=== PATIENT | male | born 1995 | race Caucasian/White ===

== ENCOUNTER 2017-06-29 13:42 | Emergency (ER) | payer BC ==
[~2017-06-29] VITALS: Ht 175.3 cm; Wt 75.7 kg
[2017-06-29 14:56] LABS: HEMATOCRIT 45.2 % (38.0-50.0); HEMOGLOBIN 16.2 G/DL (12.5-16.6); MCH 31.7 PG (29.0-34.0); MCHC 35.8 G/DL (30.0-36.0); MCV 88.5 FL (86-99); PLATELET COUNT 231 K/uL (156-360); RBC DIS.WIDTH-CV 11.8 % (11.8-14.6); RBC DIS.WIDTH-SD 37.9 % (39-53); RED BLOOD COUNT 5.11 M/uL (4.00-5.50); WHITE BLOOD COUNT 9.5 K/uL (4.1-10.2)
[2017-06-29 15:09] LABS: CHLORIDE 104 mEq/L (99-109); POTASSIUM 4.1 mEq/L (3.7-5.4); SODIUM 140 mEq/L (136-147)
[2017-06-29 15:10] LABS: GLUCOSE 106 mg/dL (70-99)
[2017-06-29 15:14] LABS: CREATININE 1.1 mg/dL (0.6-1.3)
[2017-06-29 15:15] LABS: UREA NITROGEN (BUN) 22 mg/dL (9-23)
[2017-06-29 15:17] LABS: GFR ESTIMATE (CALCULATED) > 59 mL/min/ (58.99-99999)
[2017-06-29 17:16] LABS: APPEARANCE CLEAR ((CLEAR)); BILIRUBIN NEGATIVE; BLOOD NEGATIVE; COLOR YELLOW ((YELLOW)); GLUCOSE (STRIP) NEGATIVE; KETONES NEGATIVE; LEUKOCYTES NEGATIVE; NITRITE NEGATIVE; PROTEIN (STRIP) 30; SPECIFIC GRAVITY 1.027 (1.000-1.030); UCUL ADDED? NO; UROBILINOGEN 0.2 MG/DL (0.2-1.0)
[2017-06-29 17:40] LABS: ALBUMIN 4.5 g/dL (3.2-4.8)
[2017-06-29 17:43] LABS: TOTAL PROTEIN 7.9 g/dL (6.4-8.3)
[2017-06-29 17:45] LABS: TOTAL BILIRUBIN 1.4 mg/dL (0.0-1.0)
[2017-06-29 17:46] LABS: ALKALINE PHOSPHATASE 85 IU/L (3-129)
[2017-06-29 17:48] LABS: AST (GOT) 18 IU/L (2-34)
[2017-06-29 17:49] LABS: ALT (GPT) 16 IU/L (3-49); DIRECT BILIRUBIN 0.5 mg/dL (0.0-0.3)
[2017-06-29 17:50] LABS: LIPASE 21 U/L (1.0-51.0)
[2017-06-29] MEDS ORDERED: ZOFRAN4 MG SL (20:09)
[2017-06-29 21:41] VITALS: BP 133/70
== END 2017-06-29 21:43 | disposition home or self-care (01) ==
LOC: EME 13:42
PROVIDERS: Physician Assistant
DX: R10.9 Unspecified abdominal pain (principal); J45.909 Unspecified asthma, uncomplicated
CPT/HCPCS: 74177; 76705; 80048; 80076; 81003; 83690; 85027; 99281; 99285; J1885; J2405; J7030